=== PATIENT | female | born 1945 | race Caucasian/White ===

== ENCOUNTER → 2016-12-03 | Outpatient (REF) | payer MEDICARE ==
[2016-12-03 14:11] LABS: BASOPHILS % (AUTO) 1 % (0-2); EOSINOPHILS # (AUTO) 0.2 10^3uL; EOSINOPHILS % (AUTO) 2 % (0-4); MEAN CORPUSCULAR HEMOGLOBIN 29.3 PG (26.0-34.0); MEAN CORPUSCULAR VOLUME 82 FL (80-100); MONOCYTES # (AUTO) 0.4 X10^3; MONOCYTES % (AUTO) 6 % (3-11); NEUTROPHILS # (AUTO) 5.1 X10^3; NEUTROPHILS % (AUTO) 66 % (51-67); PLATELET COUNT 232 10^3uL (150-450); WHITE BLOOD COUNT 7.78 10^3uL (4.0-11.0)
[2016-12-03 14:13] LABS: BILIRUBIN,URINE Negative (Negative); CLARITY,URINE Clear; COLOR,URINE Yellow; GLUCOSE, URINE (UA) 3+ (Negative); LEUKOCYTE ESTERASE ,URINE Negative (Negative); UROBILINOGEN,URINE 0.2 mg/dL (0.2-1.0)
[2016-12-03 14:14] LABS: MEAN CORPUSCULAR HGB CONC 35.6 g/dL (31.0-37.0)
[2016-12-03 14:15] LABS: URINE CENTRIFUGED VOLUME <10mL Unspun
[2016-12-03 14:27] LABS: ALBUMIN 4.5 g/dL (3.4-5.0); CALCULATED IONIZED CALCIUM 4.3 mg/dL (3.8-4.6); TOTAL PROTEIN 7.4 g/dL (6.4-8.5)
== END ==
LOC: LAB 13:50
PROVIDERS: ATTEND Physician Assistant Surgical
DX: R53.83 Other fatigue (principal); R63.1 Polydipsia; Z86.39 Personal history of other endocrine, nutritional and metabolic disease; R35.8 Other polyuria
CPT/HCPCS: 80053; 81003; 81015; 83036; 84443; 85025